=== PATIENT | female | born 1955 | race Caucasian/White ===

== ENCOUNTER 2019-08-11 08:11 | Outpatient (CLI) | payer BC ==
[2019-08-11 12:06] LABS: BASOPHILS % (AUTO) 0.3 %; EOSINOPHILS # (AUTO) 0.1 10^3/uL (0.0-0.7); EOSINOPHILS % (AUTO) 1.7 %; HGB - HEMOGLOBIN 13.4 g/dL (12.0-16.0); LYMPHOCYTES # (AUTO) 1.4 10^3/uL (1.5-3.5); LYMPHOCYTES % (AUTO) 40.8 %; MEAN CORPUSCULAR HEMOGLOBIN 33.5 pg (27.0-31.0); MEAN CORPUSCULAR HGB CONC 33.3 g/dL (32.0-36.0); MEAN CORPUSCULAR VOLUME 100.8 fL (81.0-99.0); MEAN PLATELET VOLUME 10.9 fL (7.9-10.8); MONOCYTES # (AUTO) 0.4 10^3/uL (0.0-1.0); MONOCYTES % (AUTO) 10.8 %; NEUTROPHILS # (AUTO) 1.6 10^3/uL (1.5-6.6); NEUTROPHILS % (AUTO) 46.4 %; PLT - PLATELET COUNT 218 10^3/uL (130-450); RED CELL DISTRIBUTION WIDTH 12.6 % (12.0-15.0); WHITE BLOOD COUNT 3.4 x10^3/uL (4.8-10.8)
[2019-08-11 13:13] LABS: ALBUMIN 4.5 g/dL (3.2-5.5); ALBUMIN/GLOBULIN RATIO 1.6 (1.0-2.2); ALKALINE PHOSPHATASE 46 IU/L (42-121); ALT ALANINE AMINOTRANSFERASE 31 IU/L (10-60); AST ASPARTATE AMINOTRANSFERASE 29 IU/L (10-42); BILIRUBIN,TOTAL 0.7 mg/dL (0.2-1.0); BUN - BLOOD UREA NITROGEN 19 mg/dL (6-20); CALCIUM 9.3 mg/dL (8.5-10.3); CARBON DIOXIDE - CO2 26 mmol/L (21-32); CHLORIDE 100 mmol/L (101-111); CHOL/HDL RATIO 2.2 (<4.4); CHOLESTEROL 220 mg/dL; CREATININE 0.5 mg/dL (0.4-1.0); GFR - MDRD 125 (>89); GLUCOSE 94 mg/dL (70-100); HDL CHOLESTEROL 98 mg/dL; LDL CHOLESTEROL,CALCULATED 111 mg/dL; LDL/HDL RATIO 1.1 (<4.4); SODIUM 138 mmol/L (135-145); TOTAL PROTEIN 7.4 g/dL (6.7-8.2); VLDL CHOLESTEROL 11 mg/dL
== END 2019-08-11 23:59 | disposition home or self-care (01) ==
LOC: LAB.N 08:11
PROVIDERS: ATTEND Nurse Practitioner Gerontology
DX: Z00.8 Encounter for other general examination (principal)
CPT/HCPCS: 36415; 80053; 80061; 83721; 85025

== ENCOUNTER 2019-11-13 13:51 | Emergency (ER) | payer BC ==
[2019-11-13 14:02] VITALS: BP 173/76
--- NOTE | 2019-11-13 14:12 | ED Physician Documentation ---
History of Present Illness - Stated complaint Stated Complaint: RT THUMB PX - Chief complaint Chief Complaint: Ext Problem - History obtained from History obtained from: Patient (Pt presents with painful and swollen right thumb. Noticed it 2 days ago and looked up online for instructions and thought it was likely a paronychia. She did warm water soaks multiple times a day and also epsom salt soaks. The thumb continued to swell this AM and was more painful so she came to the ER. No fever/chills, no difficulty flexing or extending thumb. No drainage.) Review of Systems Constitutional: reports: Reviewed and negative Cardiac: reports: Reviewed and negative Respiratory: reports: Reviewed and negative GI: reports: Reviewed and negative Skin: reports: Other (Right thumb redness/swelling.) Musculoskeletal: reports: Extremity pain (right thumb pain) Neurologic: reports: Reviewed and negative PD PAST MEDICAL HISTORY - Present Medications Home Medications: Ambulatory Orders Medication Instructions Recorded Confirmed Cephalexin [Keflex] 500 mg PO Q6H #20 capsule 11/13/19 Cephalexin [Keflex] 500 mg PO Q6H #28 capsule 11/13/19 Mupirocin 22 gm TP TID 5 Days #1 oint...g. 11/13/19 - Allergies Allergies/Adverse Reactions: Allergies Allergy/AdvReac Type Severity Reaction Status Date / Time codeine Allergy Unknown Verified 11/13/19 14:02 PD ED PE NORMAL - Vitals Vital signs reviewed: Yes - General General: Alert and oriented X 3, No acute distress, Well developed/nourished - HEENT HEENT: Atraumatic, Moist mucous membranes - Cardiac Cardiac: RRR, No murmur, No gallop, No rub - Respiratory Respiratory: No respiratory distress, Clear bilaterally - Abdomen Abdomen: Normal bowel sounds, Soft, Non tender, Non distended - Derm Derm: Other (paronychia of the right thumb with tender fluid collection palpable. redness and mild swelling of the thumb. normal ROM of the thumb. no lymphangitis, no wrist pain w/ ROM. ) Results - Vitals Vitals: Vital Signs - 24 hr 11/13/19 13:53 Temperature 36.9 C Heart Rate 90 Respiratory 16 Rate Blood Pressure 173/76 H O2 Saturation 99 Oxygen O2 Source Room air Procedures - Abscess I&D (location) right thumb Preparation: Chlorhexadine, Alcohol Incision: Needle aspiration Other: Pt tolerated well, Dressing applied, Antibiotic prescribed PD MEDICAL DECISION MAKING - ED course Complexity details: considered differential, d/w patient ED course: Pt presented with a paronychia of the right thumb with a small purulent fluid collection. She had been soaking it in warm water w/o improvement and, in fact, worsenng of swelling. After informed verbal consent obtained, the wound was cleaned and I used a 21g needle to puncture the fluid collection and removed a moderate amt of purulent drainage. Given the swelling and erythema in the thumb, but I will place pt on Keflex and mupirocin. Advised to continue warm water soaks. Departure - Departure Disposition: 01 Home, Self Care Clinical Impression: Paronychia of finger of right hand Condition: Good Prescriptions: Cephalexin [Keflex] 500 mg PO Q6H #28 capsule Cephalexin [Keflex] 500 mg PO Q6H #20 capsule Mupirocin 22 gm TP TID 5 Days #1 oint...g. Comments: Please continue warm water soaks to allow drainage of the paronychia. If the swelling worsens, redness spreads, you are unable to move your thumb, or you develop a fever, return for re-evaluation. Discharge Date/Time: 11/13/19 14:12
== END 2019-11-13 14:12 | disposition home or self-care (01) ==
LOC: ED 13:51
DX: L03.011 Cellulitis of right finger (principal)
CPT/HCPCS: 26010

== ENCOUNTER 2020-06-21 15:28 | Outpatient (CLI) | payer BC ==
--- NOTE | 2020-06-22 08:04 | Mammography Report ---
BILATERAL DIGITAL SCREENING MAMMOGRAM 3D/2D: 06/21/2020 CLINICAL: Routine screening. Comparison is made to exam dated: 07/16/2017 [facility]. There ar e scattered fibroglandular elements in both breasts. No significant masses, calcifications, or other findings are seen in either breast. There has been no significant interval change. IMPRESSION: NEGATIVE There is no mammographic evidence of malignancy. A 1 year screening mammogram is recommended. This exam was interpreted at Station ID: [id number]. NOTE: For mammograms, a report in lay terms will be sent to the patient. Approximately 15% of breast malignancies will not be visualized mammographically. In the management of a palpable breast mass, a negative mammogram must not discourage biopsy of a clinically suspicious lesion. Electronically Signed By: Alvarez mcgovern/pratibha:06/21/2020 19:51:33 ACR BI-RADS Category 1: Negative 3341F PARENCHYMAL PATTERN: (A) - The breast(s) demonstrate(s) scattered fibroglandular densities. BI-RADS CATEGORY: (1) - 1 RECOMMENDATION: (ANNUAL) - Recommend routine annual screening mammography. [id number] 1 year screening LATERALITY: (B)
== END 2020-06-21 15:29 | disposition home or self-care (01) ==
LOC: DI.N 15:28
PROVIDERS: ATTEND Physician Assistant Medical
DX: Z12.31 Encounter for screening mammogram for malignant neoplasm of breast (principal)

== ENCOUNTER 2021-06-22 11:16 | Outpatient (CLI) | payer BC ==
--- NOTE | 2021-06-23 11:58 | Mammography Report ---
BILATERAL DIGITAL SCREENING MAMMOGRAM 3D/2D: 06/22/2021 CLINICAL: Family history of breast cancer. Routine screening. Comparison is made to exams dated: 06/21/2020 mammogram - [facility], 07/16/2017 [facility] [place]gram [place] [facility] [place], 08/07/2018 mammogram, 07/15/2016 mammogram, and 06/25/2015 mammogram - [facility]. There are scattered fibroglandular elements in both b reasts. No significant masses, calcifications, or other findings are seen in either breast. There has been no significant interval change. IMPRESSION: NEGATIVE There is no mammographic evidence of malignancy. A 1 year screening mammogram is recommended. This exam was interpreted at Station ID: [id number]. NOTE: For mammograms, a report in lay terms will be sent to the patient. Approximately 15% of breast malignancies will not be visualized mammographically. In the management of a palpable breast mass, a negative mammogram must not discourage biopsy of a clinically suspicious lesion. Electronically Signed By: Ronnie Umanzor M.D., jr/pratibha:06/22/2021 12:54:04 ACR BI-RADS Category 1: Negative 3341F PARENCHYMAL PATTERN: (A) - The breast(s) demonstrate(s) scattered fibroglandular densities. BI-RADS CATEGORY: (1) - 1 RECOMMENDATION: (ANNUAL) - Recommend routine annual screening mammography. [id number] 1 year screening LATERALITY: (B)
== END 2021-06-22 11:17 | disposition home or self-care (01) ==
LOC: DI.N 11:16
DX: Z12.31 Encounter for screening mammogram for malignant neoplasm of breast (principal); Z80.3 Family history of malignant neoplasm of breast

== ENCOUNTER 2022-07-25 14:57 | Outpatient (CLI) | payer BC ==
--- NOTE | 2022-07-27 10:36 | Mammography Report ---
BILATERAL DIGITAL SCREENING MAMMOGRAM 3D/2D: 07/25/2022 CLINICAL: Family history of breast cancer. Routine screening. Comparison is made to exams dated: 06/22/2021 mammogram, 06/21/2020 mammogram - [facility], 08/07/2018 mammogram - [facility], 07/16/2017 mammogram - [facility], 07/15/2016 mammogram, and 06/25/2015 mammogram - [facility] . There are scattered areas of fibroglandular density in both breasts (category b / 25%-50% glandular t issue). No significant masses, calcifications, or other findings are seen in either breast. There has been no significant interval change. IMPRESSION: NEGATIVE There is no mammographic evidence of malignancy. A 1 year screening mammogram is recommended. Based on the Tyrer Cuzick model (a risk assessment model) the patients lifetime risk is 12.3% and he r 10 year risk is 5.8%. According to the ACR, ACS, and NCCN guidelines, an annual breast MRI exam gilbert ng with mammogram is recommended if the patients lifetime risk is 20% or greater. This exam was interpreted at Station ID: [id number]. NOTE: For mammograms, a report in lay terms will be sent to the patient. Approximately 15% of breast malignancies will not be visualized mammographically. In the management of a palpable breast mass, a negative mammogram must not discourage biopsy of a clinically suspicious lesion. Electronically Signed By: Alvarez mcgovern/pratibha:07/26/2022 10:06:51 ACR BI-RADS Category 1: Negative 3341F PARENCHYMAL PATTERN: (A) - The breast(s) demonstrate(s) scattered fibroglandular densities. BI-RADS CATEGORY: (1) - 1 RECOMMENDATION: (ANNUAL) - Recommend routine annual screening mammography. [id number] 1 year screening LATERALITY: (B)
== END 2022-07-25 14:58 | disposition home or self-care (01) ==
LOC: DI.N 14:57
DX: Z12.31 Encounter for screening mammogram for malignant neoplasm of breast (principal); Z80.3 Family history of malignant neoplasm of breast

== ENCOUNTER 2023-08-16 13:25 | Outpatient (CLI) | payer BC ==
--- NOTE | 2023-08-16 15:58 | Mammography Report ---
BILATERAL DIGITAL SCREENING MAMMOGRAM 3D/2D: 08/16/2023 CLINICAL: Routine screening. Comparison is made to exams dated: 07/25/2022 mammogram, 06/22/2021 mammogram, 06/21/2020 mammogram - [facility], 08/07/2018 mammogram - [facility], 07/16/2017 mammogr am - [facility] [place], and 07/15/2016 mammogram - [facility]. Both breasts are heterogeneously dense, which may obscure small masses (category c / 51-75% glandular tissue). There are benign masses in both breasts. No significant masses, calcifications, or other findings are seen in either breast. There has been no significant interval change. IMPRESSION: BENIGN There is no mammographic evidence of malignancy. A 1 year screening mammogram is recommended. Based on the Tyrer Cuzick model (a risk assessment model) the patient's lifetime risk is 17.4% and he r 10 year risk is 8.6%. According to the ACR, ACS, and NCCN guidelines, an annual breast MRI exam gilbert ng with mammogram is recommended if the patients lifetime risk is 20% or greater. This exam was interpreted at Station ID: [id number]. NOTE: For mammograms, a report in lay terms will be sent to the patient. Approximately 15% of breast malignancies will not be visualized mammographically. In the management of a palpable breast mass, a negative mammogram must not discourage biopsy of a clinically suspicious lesion. Electronically Signed By: Wan [email or web address]/[email or web address]:08/16/2023 14:18:52 letter sent: No_Letter ACR BI-RADS Category 2: Benign Finding(s) 3342F PARENCHYMAL PATTERN: (D) - The breast(s) demonstrate(s) heterogeneously dense fibroglandular parenchy ma. BI-RADS CATEGORY: (2) - 2 Mammogram [id number] 1 year screening LATERALITY: (B)
== END 2023-08-16 13:26 | disposition home or self-care (01) ==
LOC: DI 13:25
DX: Z12.31 Encounter for screening mammogram for malignant neoplasm of breast (principal); R92.333 Mammographic heterogeneous density, bilateral breasts

== ENCOUNTER 2023-08-16 13:27 | Outpatient (CLI) | payer BC ==
--- NOTE | 2023-08-16 15:01 | DEXA Report ---
PROCEDURE: Dexa Spine and/or Hip INDICATIONS: POST MENOPAUSAL TECHNIQUE: Dual energy x-ray absorptiometry (DXA) was performed on a [employer]. Regions measur ed are the AP Spine, femoral neck, and if needed forearm. COMPARISON: None. FINDINGS: Lumbar Spine: Bone Mineral Density: 0.988 g/cm/cm,T score: -1.6. Left Femoral Neck: Bone Mineral Density: 0.791 g/cm/cm, T score: -1.8. Left Hip: Bone Mineral Density: 0.834 g/cm/cm,T score: -1.4. (T score greater or equal to -1.0: NORMAL) (T score from -1.1 to -2.4: OSTEOPENIA) (T score less than or equal to -2.5 to: OSTEOPOROSIS) Impression: By WHO criteria, this patient has low bone density (osteopenia). Patients with diagnosis of osteoporosis or osteopenia should have regular bone mineral density assess ment. For those eligible for Medicare, routine testing is allowed once every 2 years. Testing frequ ency can be increased for patients who have rapidly progressing disease or for those who are receivin g medical therapy to restore bone mass. Reviewed by: Franc Ornelas MD on 08/16/2023 2:59 PM PST Approved by: Franc Ornelas MD on 08/16/2023 2:59 PM PST Station ID: [id number]
== END 2023-08-16 13:28 | disposition home or self-care (01) ==
LOC: DI 13:27
PROVIDERS: ATTEND Physician Assistant
DX: Z78.0 Asymptomatic menopausal state (principal); N95.8 Other specified menopausal and perimenopausal disorders; M85.89 Other specified disorders of bone density and structure, multiple sites